=== PATIENT | female | born 1990 | race Caucasian/White ===

== ENCOUNTER 2016-10-26 16:30 | Emergency (ER) | payer MEDICAID, OTHER, SELFPAY ==
[~2016-10-26] VITALS: Ht 152.4 cm; Wt 50.3 kg
[2016-10-26 17:29] LABS: ASPARTATE AMINO TRANSFERASE 19 U/L (15-37); BLOOD UREA NITROGEN 9 mg/dL (7-18)
[2016-10-26] MEDS ORDERED: SODIUM CHLORIDE 0.9% 1,000ML IVBOLUS ONE (17:30)
[2016-10-26] MEDS ORDERED: METHYLNALTREXONE 12 MG/0.6 ML SQ ONE (18:00)
[2016-10-26] MEDS ORDERED: SODIUM CHLORIDE FLUSH 10ML SYR IVF ONE (18:00)
[2016-10-26] MEDS ORDERED: MAGNESIUM CITRATE 300ML ORAL SOL PO ONE (18:00)
[2016-10-26] MEDS ORDERED: PLEASE ENTER ALLERGIES MC SCH ×2 (18:30)
[2016-10-26] MEDS ORDERED: MAGNESIUM CITRATE 300ML ORAL SOL ONE ×2 (18:33)
[2016-10-26 19:45] LABS: HCG UR OBC PASS
[2016-10-26 21:18] VITALS: BP 118/74
== END 2016-10-26 21:44 | disposition home or self-care (01) ==
LOC: ED 21:10
DX: K59.00 Constipation, unspecified (principal); R10.84 Generalized abdominal pain
CPT/HCPCS: 36415; 74020; 80053; 81001; 81025; 83690; 85025; 87077; 87086; 96360; 96372; 99285; J7030; 87186